=== PATIENT | male | born 1930 | race Caucasian/White ===

== ENCOUNTER 2022-01-09 12:37 | Emergency (ER) | payer MEDICARE | END 2022-01-09 15:37 | disposition home or self-care (01) | LOC: FER 12:37 | DX: S01.112A Laceration without foreign body of left eyelid and periocular area, initial encounter (principal); S01.01XA Laceration without foreign body of scalp, initial encounter; S61.412A Laceration without foreign body of left hand, initial encounter; S00.83XA Contusion of other part of head, initial encounter; I48.91 Unspecified atrial fibrillation; Z79.82 Long term (current) use of aspirin; Z79.01 Long term (current) use of anticoagulants; W10.9XXA Fall (on) (from) unspecified stairs and steps, initial encounter; Y92.009 Unspecified place in unspecified non-institutional (private) residence as the place of occurrence of the external cause | CPT/HCPCS: 70450; 70486; 71045; 72125; 72170; 73552 ==